=== PATIENT | male | born 1960 | race African-American/Black ===

== ENCOUNTER 2016-09-03 22:18 | Emergency (ER) | payer SELFPAY ==
[~2016-09-03] VITALS: Ht 190.5 cm; Wt 121.6 kg
[2016-09-03] MEDS ORDERED: HYDROcodone-ACET 10/325MG TAB ONE (23:49)
[2016-09-04] MEDS ORDERED: HYDROcodone-ACET 10/325MG TAB PO ONE
[2016-09-04 00:46] VITALS: BP 137/94
== END 2016-09-04 06:17 | disposition home or self-care (01) ==
LOC: ER 22:18
DX: G51.0 Bell's palsy (principal); Z79.82 Long term (current) use of aspirin
CPT/HCPCS: 70450; 93005